=== PATIENT | female | born 1985 ===

== ENCOUNTER 2020-06-17 10:35 | Day surgery (SDC) | payer OTHER ==
[2020-06-17] MEDS ORDERED: MORGIDOX100 MG PO (18:31)
[2020-06-17] MEDS ORDERED: Tylenol #3 PO (18:31)
== END 2020-06-17 22:25 | disposition home or self-care (01) ==
LOC: CIR.AMB 10:35
PROVIDERS: ATTEND Obstetrics & Gynecology
DX: D25.0 Submucous leiomyoma of uterus (principal); N84.0 Polyp of corpus uteri; Z20.828 Contact with and (suspected) exposure to other viral communicable diseases

== ENCOUNTER 2022-07-31 07:31 | Inpatient (IN) | payer OTHER ==
[~2022-07-31] VITALS: Ht 160 cm; Wt 76.7 kg
[~2022-07-31 07:31] MED LIST: MORGIDOX100 MG PO; Tylenol #3 PO
[2022-07-31] MEDS ORDERED: PRENATAL TABLE1 EAC1 PO (07:51)
== END 2022-08-02 13:11 | disposition home or self-care (01) | DRG 807 ==
LOC: OBS/DEL 07:31 → LDR 07:52 → OB/GYN 18:18
PROVIDERS: ADMIT Student in an Organized Health Care Education/Training Program; ATTEND Student in an Organized Health Care Education/Training Program
PROC: 10E0XZZ Delivery of Products of Conception, External Approach (ICD-10-PCS; principal; 2022-07-31)
PROC: 0KQM0ZZ Repair Perineum Muscle, Open Approach (ICD-10-PCS; 2022-07-31)
PROC: 4A1HXCZ Monitoring of Products of Conception, Cardiac Rate, External Approach (ICD-10-PCS; 2022-07-31)
DX: O70.1 Second degree perineal laceration during delivery (principal); Z37.0 Single live birth; Z3A.37 37 weeks gestation of pregnancy; Z20.822 Contact with and (suspected) exposure to COVID-19